=== PATIENT | female | born 1960 | race African-American/Black ===

== ENCOUNTER 2017-01-13 10:57 | Emergency (ER) | payer BC ==
[~2017-01-13] VITALS: Ht 172.7 cm; Wt 54.4 kg
[2017-01-13 12:19] LABS: BASOPHIL % 0.8 % (0-2); PLATELET COUNT 192 x10^3mcL (130-400); RED CELL DISTRIBUTION WIDTH 12.6 % (11.5-14.5)
[2017-01-13 12:32] LABS: CALCIUM 9.6 mg/dL (8.5-10.1); CARBON DIOXIDE 28.8 mmol/L (21-32); CHLORIDE SERUM 105 mmol/L (98-107); CREATININE SERUM 0.9 mg/dL (0.6-1.0); GFR1 > 60 mL/min; GLUCOSE SERUM 102 mg/dL (74-106); POTASSIUM SERUM 3.2 mmol/L (3.5-5.1); SODIUM SERUM 142 mmol/L (136-145)
[2017-01-13 12:36] LABS: ALBUMIN 4.1 g/dL (3.4-5.0); ALKALINE PHOSPHATASE 80 U/L (46-116); ALT/SGPT 29 U/L (14-59); AST/SGOT 25 U/L (15-37); BILIRUBIN TOTAL 2.1 mg/dL (0.20-1.00); TOTAL PROTEIN, SERUM 7.5 g/dL (6.4-8.2)
[2017-01-13 12:45] LABS: AMPHETAMINE QUAL UR NONE DETECTED (NEG <=1000)
[2017-01-13 14:45] VITALS: BP 123/83
== END 2017-01-13 14:45 | disposition home or self-care (01) ==
LOC: ED 10:57
PROVIDERS: Emergency Medicine
DX: F03.90 Unspecified dementia, unspecified severity, without behavioral disturbance, psychotic disturbance, mood disturbance, and anxiety (principal)
CPT/HCPCS: G0480; J7030